=== PATIENT | female | born 1985 | race Caucasian/White ===

== ENCOUNTER → 2021-06-07 | Outpatient (CLI) | payer OTHER ==
[~2021-06-07] MED LIST: IRON SUCROSE 100 MG in SODIUM CHLORIDE 0.9% 100 ML IVPB NR; SODIUM CHLORIDE 0.9% 500 ML 500 ML in EMPTY BAG 1 BAG IV PRN
[2021-06-07 13:56] VITALS: BP 125/74; PULSE 64; RESP 15; TEMP 98.9
== END | disposition home or self-care (01) ==
LOC: PROCWHC3 13:38
PROVIDERS: ATTEND Internal Medicine
DX: D50.9 Iron deficiency anemia, unspecified (principal)
CPT/HCPCS: 96365; J1756

== ENCOUNTER 2021-11-22 13:35 | Emergency (ER) | payer OTHER ==
[2021-11-22 13:42] VITALS: TEMP 98.4
[2021-11-22 14:28] LABS: Basophils % (A) 1 %; Eosinophils % (A) 1 %; Lymphocytes # (A) 0.8 k/uL (1.0-4.8); Lymphocytes % (A) 25 %; MCH 29.3 pg (25.0-35.0); MCHC 32.4 g/dL (31.0-37.0); MCV 90.4 fL (80.0-100.0); Mean Platelet Volume 7.9; Monocytes # (A) 0.2 k/uL (0-1.0); Monocytes % (A) 5 %; Neutrophils % (A) 66 %; Platelet Count 219 k/uL (150-450); RBC 4.43 m/uL (3.80-5.40); RDW 14.7 % (11.5-15.5); WBC 3.1 k/uL (3.8-10.6)
[2021-11-22 14:39] LABS: ALT 17 U/L (4-34); AST 24 U/L (14-36); African American GFR (CKD) >90 (>60 ml/min/1.73 sqM); Alkaline Phosphatase 62 U/L (38-126); Anion Gap 10 mmol/L; Blood Urea Nitrogen 10 mg/dL (7-17); Calcium 9.6 mg/dL (8.4-10.2); Carbon Dioxide 25 mmol/L (22-30); Chloride 105 mmol/L (98-107); Glucose 102 mg/dL (74-99); Magnesium 1.8 mg/dL (1.6-2.3); Non-African American GFR(CKD) >90 (>60 ml/min/1.73 sqM); Potassium 3.8 mmol/L (3.5-5.1); Sodium 140 mmol/L (137-145); Total Bilirubin 0.6 mg/dL (0.2-1.3)
--- NOTE | 2021-11-22 14:54 | XR ---
EXAMINATION TYPE: XR chest 2V DATE OF EXAM: 11/22/2021 COMPARISON: NONE HISTORY: Chest pain TECHNIQUE: Frontal and lateral views of the chest are obtained. FINDINGS: There is no focal air space opacity, pleural effusion, or pneumothorax seen. The cardiac silhouette size is within normal limits. There are overlying leads. The osseous structures are intac t. IMPRESSION: No acute cardiopulmonary process.
[2021-11-22 15:01] LABS: Partial Thromboplastin Time 24.4 sec (22.0-30.0); Prothrombin Time 10.6 sec (9.0-12.0)
--- NOTE | 2021-11-22 15:22 | ED ---
Chest Pain HPI - General Chief Complaint: Chest Pain Stated Complaint: chest pressure/head/neck pressure Time Seen by Provider: 11/22/21 14:01 Source: patient, RN notes reviewed Mode of arrival: ambulatory Limitations: no limitations - History of Present Illness Initial Comments: 36-year-old female presents emergency Department with chief complaint of some palpitation, intermittent chest discomfort over a week. Patient states that symptoms started after discontinuing her blood thinners after having a PE. She states that she's been becoming very nervous and very anxious struck the week with she states she's also had very stressful issues with her children. Patient states she has no current symptoms denies any shortness breath or chest pain. Patient states her doctor told her abdomen and rule out with d-dimer and blood work. Patient states that she was on Xarelto. - Related Data Home Medications Medication Instructions Recorded Confirmed Rivaroxaban [Xarelto] 10 mg PO DAILY 06/07/21 10/29/21 Famotidine [Pepcid] 20 mg PO DAILY 10/12/21 10/29/21 Allergies Allergy/AdvReac Type Severity Reaction Status Date / Time katie Allergy Unknown Verified 11/22/21 13:42 Review of Systems ROS Statement: Those systems with pertinent positive or pertinent negative responses have been documented in the HPI. ROS Other: All systems not noted in ROS Statement are negative. Past Medical History Past Medical History: Deep Vein Thrombosis (DVT), Pulmonary Embolus (PE) Additional Past Medical History / Comment(s): anemia, "whole life" History of Any Multi-Drug Resistant Organisms: None Reported Past Surgical History: No Surgical Hx Reported Past Anesthesia/Blood Transfusion Reactions: No Reported Reaction Past Psychological History: No Psychological Hx Reported Smoking Status: Never smoker Past Alcohol Use History: None Reported Past Drug Use History: None Reported General Exam Limitations: no limitations General appearance: alert, in no apparent distress Head exam: Present: atraumatic, normocephalic, normal inspection Eye exam: Present: normal appearance, PERRL, EOMI. Absent: scleral icterus, conjunctival injection, periorbital swelling ENT exam: Present: normal exam, normal oropharynx, mucous membranes moist Neck exam: Present: normal inspection, full ROM. Absent: tenderness, meningismus, lymphadenopathy Respiratory exam: Present: normal lung sounds bilaterally. Absent: respiratory distress, wheezes, rales, rhonchi, stridor Cardiovascular Exam: Present: regular rate, normal rhythm, normal heart sounds. Absent: systolic murmur, diastolic murmur, rubs, gallop, clicks GI/Abdominal exam: Present: soft, normal bowel sounds. 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 Patient is asymptomatic will be discharged in stable condition patient feels comfortable with this. This may relate anxiety. Disposition Clinical Impression: Atypical chest pain, Stress-related symptoms Disposition: HOME SELF-CARE Condition: Stable Instructions (If sedation given, give patient instructions): Chest Pain (ED) Additional Instructions: Please return to the Emergency Department if symptoms worsen or any other concerns. Is patient prescribed a controlled substance at d/c from ED?: No Referrals: Iraida Mayberry MD [Primary Care Provider] - 1-2 days Time of Disposition: 15:22
[2021-11-22 15:38] VITALS: BP 122/69; PULSE 51; RESP 18
== END 2021-11-22 15:38 | disposition home or self-care (01) ==
LOC: EC 13:35
DX: R07.89 Other chest pain (principal); F43.9 Reaction to severe stress, unspecified; Z91.018 Allergy to other foods
CPT/HCPCS: 36415; 71046; 80053; 83735; 83880; 84484; 85025; 85379; 85610; 85730; 93005; 99285

== ENCOUNTER → 2021-12-14 | Outpatient (CLI) | payer OTHER ==
--- NOTE | 2021-12-14 10:35 | US ---
EXAMINATION TYPE: US gallbladder DATE OF EXAM: 12/14/2021 COMPARISON: NONE CLINICAL HISTORY: K82.8 OTHER SPECIFIED DISEASES OF GALLBLADDER. RUQ pain for 3 weeks EXAM MEASUREMENTS: Liver Length: 17.5 cm Gallbladder Wall: 0.2 cm CBD: 0.3 cm Right Kidney: 11.7 x 5.9 x 4.9 cm Pancreas: Obscured by bowel gas Liver: Echogenic mass seen in Right lobe, 2.7 x 2.3 x 2.0cm. This may be a hemangioma. Consider CT f or additional evaluation. Gallbladder: wnl Evidence for sonographic Sher's sign: No CBD: wnl Right Kidney: No hydronephrosis or masses seen No abnormalities seen. IMPRESSION: 1. Suspected hemangioma within the liver. Contrast CT confirmation is recommended. Alternatively, MRI could be utilized.
== END | disposition home or self-care (01) ==
LOC: RADUSWWP 09:13
PROVIDERS: ATTEND Internal Medicine
DX: K82.8 Other specified diseases of gallbladder (principal)
CPT/HCPCS: 76705

== ENCOUNTER → 2022-01-11 | Outpatient (CLI) | payer OTHER ==
--- NOTE | 2022-01-11 10:48 | MR ---
MR liver with and without contrast HISTORY: D 18.03 Multiplanar multisequence and postcontrast images obtained through the liver following 9 cc Gadavist IV Correlation to ultrasound gallbladder 12/14/2021 T2 bright focus present within the right lobe of the liver shows T1 isointensity measures approximate ly 2.5 cm. Smaller focus is present at the posterior aspect of the upper portion of the right lobe me asuring 1 cm. The echogenic mass seen on ultrasound shows progressive centripetal nodular enhancement over time, smaller lesion in the posterior right lobe of the liver shows the same enhancement patter n. Liver span is increased. No additional masses. There is no ascites. The aorta shows normal caliber. No evident pleural or pericardial effusion. Gall bladder is within normal limits. Kidneys show symmetric and unremarkable appearance. Spleen is normal . No evident bowel obstruction. IMPRESSION: Findings consistent with hemangiomas within the liver.
== END | disposition home or self-care (01) ==
LOC: RADMRIMAIN 08:44
PROVIDERS: ATTEND Internal Medicine
DX: D18.00 Hemangioma unspecified site (principal)
CPT/HCPCS: 74183; A9585

== ENCOUNTER → 2023-03-18 | Outpatient (CLI) | payer OTHER ==
--- NOTE | 2023-03-18 16:29 | US ---
EXAMINATION TYPE: US abdomen complete DATE OF EXAM: 03/18/2023 COMPARISON: NONE CLINICAL INDICATION: Female, 37 years old with history of R10.11 RT UPPER QUAD PAIN; RUQ pain, histor y of liver lesion TECHNIQUE: Multiple sonographic images of the abdomen are obtained. FINDINGS: EXAM MEASUREMENTS: Liver Length: 16.8 cm Gallbladder Wall: 0.3 cm CBD: 0.3 cm Spleen: 9.3 cm Right Kidney: 11.7 x 3.9 x 4.9 cm Left Kidney: 12.0 x 5.6 x 4.5 cm Pancreas: head obscured by overlying bowel content Liver: Round echogenic lesion posteriorly in the right liver lobe measuring 2.4 x 2.5 x 2.8cm, most likely a benign hepatic hemangioma. Gallbladder: no evidence of stones Evidence for sonographic Sher's sign: no CBD: appears wnl Spleen: isoechoic area adjacent to spleen = 0.9 x 0.9 x 0.9cm, accessory spleen Right Kidney: no evidence of hydronephrosis Left Kidney: no evidence of hydronephrosis Upper IVC: measuring 3.1cm Abd Aorta: wnl IMPRESSION: 1. A round 2.8 cm echogenic mass posterior right liver lobe. Most likely a benign hepatic hemangioma. Recommend 6 month follow-up liver ultrasound to reassess. 2. No gallstones or biliary ductal dilatation.
== END | disposition home or self-care (01) ==
LOC: RADUSWWP 10:14
PROVIDERS: ATTEND Internal Medicine
DX: R16.0 Hepatomegaly, not elsewhere classified (principal); R10.11 Right upper quadrant pain
CPT/HCPCS: 76700

== ENCOUNTER → 2023-09-30 | Outpatient (CLI) | payer OTHER ==
--- NOTE | 2023-09-30 09:58 | US ---
EXAMINATION TYPE: US liver DATE OF EXAM: 09/30/2023 COMPARISON: US & MRI CLINICAL INDICATION: Female, 37 years old with history of D18.03 LIVER HEMANGIOMA; Pt states F/U bolivar ngioma TECHNIQUE: Multiple sonographic images of the right upper quadrant are obtained. FINDINGS: EXAM MEASUREMENTS: Liver Length: 16.6 cm Gallbladder Wall: 0.3 cm CBD: 0.3 cm Right Kidney: 11.2 x 4.2 x 5.7 cm TRADE SPECIALIST NOTES: Pancreas: wnl Liver: Known hemangioma right posterior lobe= 2.4 x 2.4 x 2.3 cm appeared unchanged, main portal vei n and hepatic artery hepatofugal flow Gallbladder: wnl Evidence for sonographic Sher's sign: No CBD: wnl Right Kidney: wnl IMPRESSION: Known hemangioma in the right hepatic lobe is unchanged. No suspicious mass.
== END | disposition home or self-care (01) ==
LOC: RADUSWWP 08:10
PROVIDERS: ATTEND Internal Medicine
DX: D18.03 Hemangioma of intra-abdominal structures (principal)
CPT/HCPCS: 76705; 93976

== ENCOUNTER → 2024-05-26 | Outpatient (CLI) | payer MEDICAID ==
[2024-05-26 18:43] LABS: Basophils # (A) 0.02 X 10*3/uL (0.00-0.10); Basophils % (A) 0.7 %; Eosinophils # (A) 0.05 X 10*3/uL (0.04-0.35); Eosinophils % (A) 1.7 %; HCT 37.2 % (37.2-46.3); Immature Grans, Automated 0 %; Lymphocytes # (A) 0.98 X 10*3/uL (0.90-5.00); MCH 27.6 pg (27.0-32.0); MCHC 32.3 g/dL (32.0-37.0); MCV 85.5 FL (80.0-97.0); Monocytes # (A) 0.32 X 10*3/uL (0.20-1.00); Monocytes % (A) 11.1 %; NRBC Per 100 WBC 0 X 10*3/uL (0.00-0.01); Neutrophils # (A) 1.51 X 10*3/uL (1.80-7.70); Neutrophils % (A) 52.5 %; Platelet Count 225 X 10*3/uL (140-440); RBC 4.35 X 10*6/uL (4.10-5.20); RDW 16.2 % (11.5-14.5); WBC 2.88 X 10*3/uL (4.50-10.00)
== END | disposition home or self-care (01) ==
LOC: LABPAT 13:08
PROVIDERS: ATTEND Obstetrics & Gynecology
DX: Z01.812 Encounter for preprocedural laboratory examination (principal); N92.0 Excessive and frequent menstruation with regular cycle
CPT/HCPCS: 85025

== ENCOUNTER 2024-06-14 07:00 | Day surgery (SDC) | payer MEDICAID ==
[2024-06-14] MEDS ORDERED: DEXAMETHASONE SOD PHOSPHATE 4 MG/ML 1 ML VIAL ONE (07:20)
[2024-06-14] MEDS ORDERED: LACTATED RINGERS 1,000 ML BAG ONE (07:20)
[2024-06-14] MEDS ORDERED: ONDANSETRON 4 MG/2 ML VIAL ONE (07:22)
[2024-06-14] MEDS ORDERED: fentaNYL (PF) 50 MCG/ML 2 ML AMP ONE (08:30)
[2024-06-14] MEDS ORDERED: PROPOFOL 10 MG/ML 20 ML VIAL IV ONE (08:30)
[2024-06-14] MEDS ORDERED: LIDOCAINE 1% INJ 10MG/ML (20 ML MDV) ONE (08:30)
[2024-06-14] MEDS ORDERED: MIDAZOLAM 2 MG/2 ML VIAL ONE (08:30)
[2024-06-14] MEDS ORDERED: KETOROLAC 15 MG/ML 1 ML VIAL ONE (08:30)
[2024-06-14] MEDS ORDERED: GLYCOPYRROLATE 0.2 MG/ML 2 ML VIAL ONE (08:30)
[2024-06-14] MEDS ORDERED: HYDROmorphone 0.5 MG/0.5 ML SYRINGE ONE (09:31)
--- NOTE | 2024-06-25 15:52 | OP ---
OPERATIVE REPORT DATE OF SERVICE : 06/14/2024 PREOPERATIVE DIAGNOSIS: Menorrhagia. POSTOPERATIVE DIAGNOSIS: Menorrhagia. PROCEDURES: Dilation and curettage, hysteroscopy, and endometrial ablation with NovaSure. SPECIMENS: Endometrial curettings. ESTIMATED BLOOD LOSS: 10 mL. COMPLICATIONS: None. CONDITION: Stable. FINDINGS: Normal contour of the uterus. Moderate amount of endometrial tissue. DESCRIPTION OF PROCEDURE: The patient was taken to the operating room where general anesthesia was obtained without difficulty. She was prepped and draped in the normal sterile fashion in the dorsal lithotomy position. The legs were placed in the Nixon stirrups. Bladder was drained off all urine. A weighted speculum was placed in the vagina. The anterior lip of the cervix was grasped with a single-tooth tenaculum. The uterus sounded to 11 cm. The cervix sounded to 3.5 cm. The cervix was dilated with #8 Hegar dilator. Hysteroscopy was performed with was noted. The sharp curette was then gently used to obtain endometrial curetting. NovaSure was introduced into the uterus length of 6.5 cm, width 4.3 cm. Time of ablation 51 seconds 154 toscano. NovaSure was removed. Hysteroscopy was again performed. Adequate ablation was noted. All instruments were removed from the vagina. The patient tolerated the procedure well. Sponge and instruments were correct x2. She was taken to the recovery room in stable condition. MMODL / IJN: [id number] /
== END 2024-06-14 11:11 ==
LOC: OR 07:00
PROVIDERS: ATTEND Obstetrics & Gynecology
DX: N92.0 Excessive and frequent menstruation with regular cycle (principal); K21.9 Gastro-esophageal reflux disease without esophagitis; D64.9 Anemia, unspecified; Z79.82 Long term (current) use of aspirin
CPT/HCPCS: 81025; 88305

== ENCOUNTER → 2025-05-18 | Outpatient (CLI) | payer OTHER ==
--- NOTE | 2025-05-18 09:40 | US ---
EXAMINATION TYPE: US liver DATE OF EXAM: 05/18/2025 COMPARISON: MRI ultrasound CLINICAL INDICATION: Female, 39 years old with history of D18.03 LIVER HEMANGIOMA; Follow up hemangio ma TECHNIQUE: Grayscale and color Doppler imaging of the right upper quadrant was performed. FINDINGS: EXAM MEASUREMENTS: Liver Length: 17.5 cm Gallbladder Wall: 0.1 cm CBD: 0.3 cm Right Kidney: 11.8 x 5.5 x 4.0 cm Pancreas: wnl Liver: right lobe hemangioma= 2.8 x 2.8 x 2.3 cm Gallbladder: wnl Evidence for sonographic Sher's sign: neg CBD: wnl Right Kidney: No hydronephrosis or masses seen IMPRESSION: 1. No evidence for acute process. 2. Hyperechoic liver lesion most compatible with hemangioma. [facility], , 05/18/2025 9:38 AM
== END | disposition home or self-care (01) ==
LOC: RADUSWWP 08:37
PROVIDERS: ATTEND Internal Medicine
DX: D18.03 Hemangioma of intra-abdominal structures (principal); K76.9 Liver disease, unspecified
CPT/HCPCS: 76705